=== PATIENT | female | born 1940 | race Caucasian/White ===

== ENCOUNTER 2022-03-09 22:56 | Emergency (ER) | payer MEDICARE, OTHER ==
[~2022-03-09] VITALS: Ht 170 cm; Wt 90.7 kg
[2022-03-09 23:16] LABS: BASOPHILS % (AUTO) 0 % (0-10); EOSINOPHILS # (AUTO) 0.2 10^3/uL (0.0-0.3); EOSINOPHILS % (AUTO) 3 % (0-10); HEMATOCRIT 40 % (40-54); HEMOGLOBIN 12.4 g/dL (13.3-17.7); LYMPHOCYTES # (AUTO) 1.8 10^3/uL (1.0-4.0); LYMPHOCYTES % (AUTO) 28 % (12-44); MEAN CORPUSCULAR HEMOGLOBIN 26 pg (25-34); MEAN CORPUSCULAR HGB CONC 31 g/dL (32-36); MEAN CORPUSCULAR VOLUME 82 fL (80-99); MEAN PLATELET VOLUME 9.8 fL (9.0-12.2); MONOCYTES # (AUTO) 0.7 10^3/uL (0.0-1.0); MONOCYTES % (AUTO) 10 % (0-12); NEUTROPHILS # (AUTO) 3.8 10^3/uL (1.8-7.8); NEUTROPHILS % (AUTO) 58 % (42-75); PLATELET COUNT 245 10^3/uL (130-400); WHITE BLOOD COUNT 6.5 10^3/uL (4.3-11.0)
--- NOTE | 2022-03-09 23:20 | ED Fall/Injury ---
General Chief Complaint: Trauma-Non Activation Stated Complaint: FALL - HEAD INJ Source: patient (PT IS LIMITED HISTORIAN ABOUT PMH AND DOES NOT KNOW ANY OF HER MEDICATIONS. ) History of Present Illness Date Seen by Provider: Mar 09, 2022 Time Seen by Provider: 23:00 Initial Comments PT ARRIVES VIA EMS FROM [facility] [place]--PT LIVES IN [place]. PT WAS GOING UP A STEP AND LOST HER BALANCE AND FELL FORWARD, HITTING HER RIGHT BROW AREA ON CONCRETE NO LOSS OF CONSCIOUSNESS RIGHT EYE IS SWOLLEN SHUT ON ARRIVAL HAS CHRONIC NECK AND BACK PAIN, NO INCREASED PAIN IN NECK OR BACK NO HIP OR LEG PAIN, NO ARM PAIN NO CHEST PAIN OR SHORTNESS OF BREATH NO ABDOMINAL PAIN NO NAUSEA/VOMITING NO PARESTHESIAS OR MOTOR DEFICITS DENIES ANY OTHER INJURIES FROM THE INCIDENT. NO OPEN WOUNDS FROM THE INCIDENT PT IS ON ASPIRIN PT HAS BEEN ON UNKNOWN BLOOD THINNER FOR CAROTID DISEASE, BUT STOPPED IT A MONTH AGO, DUE TO BEING SCHEDULED TO HAVE INJECTIONS IN HER BACK FOR HER CHRONIC BACK PAIN PT LIVES IN [place], PCP IS IN [place] WITH [facility] Allergies and Home Medications Allergies Coded Allergies: No Known Drug Allergies (Unverified , 03/10/22) Patient Home Medication List Home Medication List Reviewed: No (PT CAN'T REMEMBER HER MEDICATIONS) Hydrocodone/Acetaminophen (Hydrocodone-Acetamin 5-325 mg) 5 Mg-325 Mg Tablet, 1 EACH PO Q4-6 HOURS PRN for PAIN Prescribed by: KOBY CAMPBELL on 03/10/22 0109 Review of Systems Review of Systems Constitutional: no symptoms reported Eyes: See HPI Ears, Nose, Mouth, Throat: no symptoms reported Respiratory: no symptoms reported Cardiovascular: no symptoms reported Gastrointestinal: no symptoms reported Genitourinary: no symptoms reported Musculoskeletal: no symptoms reported Skin: see HPI, other (BRUISING TO RIGHT EYE AREA) Psychiatric/Neurological: See HPI, Headache; Denies Numbness, Denies Paresthesia, Denies Seizure, Denies Tingling, Denies Tremors, Denies Weakness Past [id number] Hx Patient Social History Tobacco Use?: No Substance use?: No Alcohol Use?: No Immunizations Up To Date Influenza Vaccine Up-to-Date: Yes; Up-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, unsure of dates Past Medical History Surgeries: Yes (CERVICAL & LUMBAR SPINE SURGERY) Orthopedic Respiratory: No Cardiac: Yes (CAROTID DISEASE) Hypertension, Peripheral Vascular Neurological: No Genitourinary: No Gastrointestinal: No Musculoskeletal: Yes (CHRONIC NECK PAIN) Chronic Back Pain Endocrine: Yes (MORBID OBESITY) HEENT: No Cancer: No Integumentary: No Blood Disorders: No Physical Exam Vital Signs Vital Signs - First Documented 03/09/22 22:57 Temp 36.7 Pulse 87 Resp 20 B/P (MAP) 185/93 (123) Pulse Ox 94 O2 Delivery Room Air Capillary Refill : Height, Weight, BMI Height: '" Weight: lbs. oz. kg; BMI Method: General Appearance: WD/WN, obese (MORBIDLY OBESE. VERY DRAMATIC, SCREAMING, WAILING. MAKING MULTIPLE DEMANDS ON ARRIVAL. ) HEENT: TMs normal, other (LARGE RIGHT PERIORBITAL HEMATOMA, UNABLE TO PRY EYE OPEN TO VISUALIZE THE EYE ITSELF. NO BLEEDING OR WATERING/DRAINAGE FROM RIGHT EYE. LEFT EYE IS NORMAL. NOSE IS NORMAL. NO MANDIBULAR PAIN OR SWELLING. 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 NO DRAINAGE OR OPEN WOUNDS TO LEGS. RIGHT RING FINGER WITH PARTIAL NAIL AVULSION ( ARTIFICIAL NAILS) OF DISTAL HALF OF NATURAL NAIL. NO ACTIVE BLEEDING AT THIS TIME. ) Neurologic/Psychiatric: alert, oriented x 3, other (CRANIAL NERVE TESTING LIMITED DUE TO INABLITITY TO OPEN RIGHT EYE. ) Skin: warm/dry, ecchymosis ( NOTED ABOVE. ) Shayna Coma Score Best Eye Response: (4) Open Spontaneously Best Verbal Response: (5) Oriented Best Motor Response: (6) Obeys Commands [place] Total: 15 Procedures/Interventions Splinting and Joint Reduction : Pre-Proc Neuro Vasc Exam: normal Post-Proc Neuro Vasc Exam: normal Splints: Colles Wrist Progress/Results/Core Measures Results/Orders Lab Results Laboratory Tests Test 03/09/22 23:10 Range/Units White Blood Count 6.5 4.3-11.0 10^3/uL Red Blood Count 4.83 4.30-5.52 10^6/uL Hemoglobin 12.4 L 13.3-17.7 g/dL Hematocrit 40 40-54 % Mean Corpuscular Volume 82 80-99 fL Mean Corpuscular Hemoglobin 26 25-34 pg Mean Corpuscular Hemoglobin Concent 31 L 32-36 g/dL Red Cell Distribution Width 17.2 H 10.0-14.5 % Platelet Count 245 130-400 10^3/uL Mean Platelet Volume 9.8 9.0-12.2 fL Immature Granulocyte % (Auto) 0 % Neutrophils (%) (Auto) 58 42-75 % Lymphocytes (%) (Auto) 28 12-44 % Monocytes (%) (Auto) 10 0-12 % Eosinophils (%) (Auto) 3 0-10 % Basophils (%) (Auto) 0 0-10 % Neutrophils # (Auto) 3.8 1.8-7.8 10^3/uL Lymphocytes # (Auto) 1.8 1.0-4.0 10^3/uL Monocytes # (Auto) 0.7 0.0-1.0 10^3/uL Eosinophils # (Auto) 0.2 0.0-0.3 10^3/uL Basophils # (Auto) 0.0 0.0-0.1 10^3/uL Immature Granulocyte # (Auto) 0.0 0.0-0.1 10^3/uL Prothrombin Time 14.7 12.2-14.7 SEC INR Comment 1.1 0.8-1.4 Activated Partial Thromboplast Time 41 H 24-35 SEC Sodium Level 141 135-145 MMOL/L Potassium Level 4.3 3.6-5.0 MMOL/L Chloride Level 100 98-107 MMOL/L Carbon Dioxide Level 28 21-32 MMOL/L Anion Gap 13 5-14 MMOL/L Blood Urea Nitrogen 12 7-18 MG/DL Creatinine 0.76 0.60-1.30 MG/DL Estimat Glomerular Filtration Rate 91 BUN/Creatinine Ratio 16 Glucose Level 102 70-105 MG/DL Calcium Level 8.7 8.5-10.1 MG/DL My Orders Orders - KOBY CAMPBELL DO Ct Head/Face/Cervical Wo (03/09/22 23:02) Basic Metabolic Panel (03/09/22 23:02) Cbc With Automated Diff (03/09/22 23:02) Protime With Inr (03/09/22 23:02) Partial Thromboplastin Time (03/09/22 23:02) Fentanyl Inj (Sublimaze Injection) (03/10/22 00:30) Hand, Right, 3 Views (03/10/22 00:24) Rx-Hydrocodone/Apap 5-325 Mg (Rx-Vicodin (03/10/22 01:15) Ed Ortho/Other Supplies Order (03/10/22 01:14) Medications Given in ED Current Medications Medications Dose Ordered Sig/Keagan Route Start Time Stop Time Status Last Admin Dose Admin Acetaminophen/ Hydrocodone Bitart 1 ea Q4H PRN PO 03/10/22 01:15 03/10/22 01:28 DC 03/10/22 01:24 1 EA Fentanyl Citrate 50 mcg ONCE ONCE IVP 03/10/22 00:30 03/10/22 00:31 DC 03/10/22 00:24 50 MCG Vital Signs/I&O 03/09/22 03/10/22 22:57 01:25 Temp 36.7 36.7 Pulse 87 6 Resp 20 20 B/P (MAP) 185/93 (123) 166/84 Pulse Ox 94 94 O2 Delivery Room Air Room Air Progress Progress Note : Progress Note 0025--PT NOW COMPLAINING OF PAIN AND SWELLING AND BRUISING TO RIGHT FINGERS 3,4,5. RINGS ARE VERY TIGHT NORMALLY AND NOW ARE MUCH TIGHTER. STILL WITH DISTAL NEUROVASCULAR INTACT RINGS CUT OFF FROM RIGHT FINGERS 3 AND 4. NO DETERIORATION IN PT'S CONDITION DURING ER STAY PT WOULD NOT KEEP ICE PACK ON AREA, DUE TO DISCOMFORT RIGHT HAND/FINGERS PLACED IN SPLINT Diagnostic Imaging Comments CT HEAD/MAXILLOFACIALS/CERVICAL SPINE--PER RADIOLOGIST REPORT AT 0058 CT HEAD: The ventricles are normal in size, shape and position. There are no masses or hemorrhages. There are no extra-axial fluid collections. There is large right frontal scalp hematoma. There are no skull fractures seen. IMPRESSION: Large right frontal scalp hematoma. No acute intracranial abnormality seen CT FACIAL BONES: The orbital cline and rims appear to be intact. Nasal bones are intact. Mandible is intact. Paranasal sinuses are clear. IMPRESSION: Negative CT facial bones CT cervical spine: There are postoperative changes from anterior cervical discectomy fusion C4-C5, C5-C6 and C6-C7. Alignment is normal. There is no acute fracture or dislocation. There is no evidence of hardware failure. IMPRESSION: Postsurgical changes in the cervical spine. No acute abnormality seen. XRAYS RIGHT HAND--SMALL AVULSION FRACTURE AT PIP JOINT OF 4TH FINGER. PENDING RADIOLOGIST REVIEW Reviewed: Reviewed by Me Departure Impression Primary Impression: FALL GOING UP STEP Additional Impressions: Periorbital hematoma of right eye CERVICAL SPINE STRAIN Minor head injury without loss of consciousness CLOSED FRACTURE RIGHT 4TH FINGER Partial avulsion of fingernail Disposition: HOME, SELF-CARE Condition: Stable Departure-Patient Inst. Decision time for Depature: 01:06 Patient Instructions: Black Eye ED, Finger Fracture (DC), Minor Head Injury, Adult ED, Nail Avulsion (DC), Neck Sprain (DC), Preventing Falls in Older Adults Add. Discharge Instructions: ICE TO SORE AREAS AT 2O MINUTE INTERVALS WEAR SPLINT AT ALL TIMES FOLLOW UP WITH YOUR DR IN 2-3 DAYS FOR FURTHER CARE, RETURN TO ER IF SYMPTOMS WORSEN All discharge instructions reviewed with patient and/or family. Voiced understanding. Scripts Hydrocodone/Acetaminophen (Hydrocodone-Acetamin 5-325 mg) 5 Mg-325 Mg Tablet 1 EACH PO Q4-6 HOURS PRN for PAIN, #12 TAB Prov: KOBY CAMPBELL DO 03/10/22 KOBY CAMPBELL DO Mar 09, 2022 23:20
[2022-03-09 23:27] LABS: POTASSIUM 4.3 MMOL/L (3.6-5.0)
[2022-03-09 23:28] LABS: CALCIUM 8.7 MG/DL (8.5-10.1)
[2022-03-09 23:32] LABS: CREATININE SERUM 0.76 MG/DL (0.60-1.30)
[2022-03-09 23:39] LABS: INR 1.1 (0.8-1.4); PROTHROMBIN TIME PATIENT 14.7 SEC (12.2-14.7)
[2022-03-10] MEDS ORDERED: fentaNYL INJ 100 MCG/2 ML AMP IVP ONE (00:30)
--- NOTE | 2022-03-10 00:37 | Diagnostic Imaging Report ---
PROCEDURE: CT head, face, and cervical spine without contrast. TECHNIQUE: Multiple contiguous axial images were obtained through the head, neck, and facial bones without the use of intravenous contrast. Sagittal and coronal reformations through the cervical spine and facial bones were also performed. Auto Exposure Controls were utilized during the CT exam to meet ALARA standards for radiation dose reduction. INDICATION: Head trauma CT HEAD: The ventricles are normal in size, shape and position. There are no masses or hemorrhages. There are no extra-axial fluid collections. There is large right frontal scalp hematoma. There are no skull fractures seen. IMPRESSION: Large right frontal scalp hematoma. No acute intracranial abnormality seen CT FACIAL BONES: The orbital cline and rims appear to be intact. Nasal bones are intact. Mandible is intact. Paranasal sinuses are clear. IMPRESSION: Negative CT facial bones CT cervical spine: There are postoperative changes from anterior cervical discectomy fusion C4-C5, C5-C6 and C6-C7. Alignment is normal. There is no acute fracture or dislocation. There is no evidence of hardware failure. IMPRESSION: Postsurgical changes in the cervical spine. No acute abnormality seen. Dictated by: Dictated on workstation # [id number]
[2022-03-10] MEDS ORDERED: ACHD5005 PO (01:09)
[2022-03-10 01:25] VITALS: BP 166/84
--- NOTE | 2022-03-10 05:30 | Diagnostic Imaging Report ---
INDICATION: Fall with right hand pain and swelling AP, oblique and lateral views of right hand reveal nondisplaced avulsion fracture along the palmar aspect of 4th middle phalanx proximally which extends to the interphalangeal joint. Otherwise, no acute fracture or malalignment is identified. IMPRESSION: Nondisplaced avulsion fracture along the palmar aspect of 4th middle phalanx proximally. Dictated by: Dictated on workstation # [id number]
== END 2022-03-10 01:25 | disposition home or self-care (01) ==
LOC: EDSEX 22:58 → ER 22:58
DX: S62.654A Nondisplaced fracture of middle phalanx of right ring finger, initial encounter for closed fracture (principal); S09.90XA Unspecified injury of head, initial encounter; S13.4XXA Sprain of ligaments of cervical spine, initial encounter; S05.11XA Contusion of eyeball and orbital tissues, right eye, initial encounter; G89.29 Other chronic pain; M54.9 Dorsalgia, unspecified; E66.01 Morbid (severe) obesity due to excess calories; Z79.82 Long term (current) use of aspirin; Z79.01 Long term (current) use of anticoagulants; W10.9XXA Fall (on) (from) unspecified stairs and steps, initial encounter; Y92.511 Restaurant or cafe as the place of occurrence of the external cause
CPT/HCPCS: 36415; 70450; 70486; 72125; 73130; 80048; 85025; 85610; 85730